=== PATIENT | male | born 1970 | race Caucasian/White ===

== ENCOUNTER 2024-11-09 04:02 | Emergency (ER) | payer BC ==
[~2024-11-09] VITALS: Ht 172.7 cm; Wt 104.3 kg
[~2024-11-09 04:02] MED LIST: ESOM20 PO; HYDACE5 PO; PROM25 PO
[2024-11-09 04:40] LABS: BASOPHILS ABSOLUTE AUTO 0.06 K/mm3 (0.00-0.23); BASOPHILS PERCENT AUTO 1 % (0-2); EOSINOPHILS ABSOLUTE AUTO 0.09 K/mm3 (0.00-0.68); EOSINOPHILS PERCENT AUTO 1 % (0-6); Hemoglobin 14.5 g/dL (13.5-17.5); IMMATURE GRAN ABSOLUTE AUTO 0.07 K/mm3 (0.00-0.10); IMMATURE GRAN PERCENT AUTO 1 % (0-1); LYMPHOCYTES ABSOLUTE AUTO 2.43 K/mm3 (0.84-5.20); LYMPHOCYTES PERCENT AUTO 29 % (21-46); MONOCYTES ABSOLUTE AUTO 0.79 K/mm3 (0.16-1.47); MONOCYTES PERCENT AUTO 10 % (4-13); Mean Corpuscular HGB 28.4 pg (26.0-34.0); Mean Corpuscular Volume 86 fL (80-100); Mean Platelet Volume 9.2 fL (9.1-12.4); NEUTROPHILS ABSOLUTE AUTO 4.88 K/mm3 (1.96-9.15); NEUTROPHILS PERCENT AUTO 59 % (41-73); Platelet Count 311 K/mm3 (150-400); RDW Coefficient Variation 13.1 % (11.7-14.2); RDW Standard Deviation 41.3 fL (35.1-46.3); White Blood Cell Count 8.32 K/mm3 (4.00-11.30)
[2024-11-09 04:53] LABS: Source, Urine Clean Catch
[2024-11-09 04:59] LABS: Bilirubin, Urine Neg (Neg); Blood, Urine Neg (Neg); Glucose Qualitative, Urine Neg (Neg); Ketones, Urine Neg (Neg); Leukocyte Esterase, Urine Neg (Neg); Nitrite, Urine Neg (Neg); Protein, Urine Neg (Neg); Specific Gravity, Urine 1.005 (1.003-1.022); Urobilinogen, Urine NORM (Normal)
[2024-11-09 05:07] LABS: Appearance, Urine Clear (Clear); Color, Urine Yellow (P-Yellow)
[2024-11-09 05:11] LABS: Albumin, Blood 3.9 g/dL (3.4-5.0); Bilirubin, Total 0.5 mg/dL (0.1-1.0); Bun/Creatinine Ratio 11.5 (12.0-20.0); Calcium, Blood 9.1 mg/dL (8.5-10.1); Creatinine, Blood 1.04 mg/dL (0.60-1.20); Potassium, Blood 4.2 mmol/L (3.5-5.5); Total Protein, Blood 7.9 g/dL (6.4-8.2)
[2024-11-09] MEDS ORDERED: Mag Hydrox/AL Hydrox/Simeth 30 ML UDC PO ONE (05:20)
[2024-11-09] MEDS ORDERED: Famotidine 10 MG/ML 2ML Vial IV ONE (05:20)
[2024-11-09] MEDS ORDERED: FAMO20 PO (06:44)
[2024-11-09] MEDS ORDERED: ALMACONE SUSPE355 ML PO (06:44)
== END 2024-11-09 08:01 | disposition home or self-care (01) ==
LOC: ER 04:02
PROVIDERS: Emergency Medicine
DX: K21.9 Gastro-esophageal reflux disease without esophagitis (principal); R14.0 Abdominal distension (gaseous); R73.9 Hyperglycemia, unspecified; Z68.35 Body mass index [BMI] 35.0-35.9, adult; Z79.899 Other long term (current) drug therapy
CPT/HCPCS: 76705; 80053; 81003; 83690; 85025; 93005; 93010; 96374; 99284-25; A9270